=== PATIENT | female | born 1985 ===

== ENCOUNTER 2017-09-21 23:17 | Emergency (ER) | payer MEDICAID ==
[2017-09-22 00:13] VITALS: BP 167/127; PULSE 98; RESP 18; TEMP 98; O2SAT 98
== END 2017-09-22 00:20 | disposition left against medical advice (07) ==
LOC: H.ER 23:17
DX: Z02.89 Encounter for other administrative examinations (principal)

== ENCOUNTER 2018-02-12 02:25 | Emergency (ER) | payer MEDICAID ==
[2018-02-12 03:17] VITALS: PULSE 61; RESP 18; TEMP 98; O2SAT 100
[2018-02-12 04:44] LABS: BASO % 0.9 % (0.0-2.0); EOS # 0.3 K/uL (0.0-0.7); EOS % 6.7 % (0.0-4.0); HEMOGLOBIN 13.8 g/dL (12.0-16.0); LYMPH % 52.6 % (20.0-40.0); MEAN CELL VOLUME 87.6 fl (81.0-99.0); MEAN CORPUSCULAR HEMOGLOBIN 29.7 pg (27.0-31.0); MEAN CORPUSCULAR HGB CONC 33.9 g/dL (33.0-37.0); MEAN PLATELET VOLUME 10.2 fl (7.2-11.7); MONO # 0.6 K/uL (0.0-0.8); MONO % 15.2 % (0.0-10.0); NEUT % 24.6 % (50.0-75.0); NRBC % 0.2 % (0.0-0.0); RBC 4.66 Mil/uL (3.80-5.20); WHITE BLOOD COUNT 3.9 K/uL (4.8-10.8)
[2018-02-12 04:52] LABS: CALCIUM 8.8 mg/dL (8.4-10.2); GFR AFRICAN-AMERICAN > 60; GFR NON-AFRICAN AMERICAN > 60
[2018-02-12 04:58] LABS: ALB/GLOB RATIO 1.1 (1.0-2.1); ALBUMIN 4.3 g/dL (3.5-5.0); ALT/SGPT 24 U/L (9-52); AST/SGOT 41 U/L (14-36); BLOOD UREA NITROGEN 13 mg/dl (7-17)
--- NOTE | 2018-02-12 05:27 | ED PDOC ---
HPI: Hypertension/Hypotension Time Seen by Provider: 02/12/18 03:20 Chief Complaint (Nursing): High Blood Pressure Chief Complaint (Provider): High Blood Pressure History Per: Patient History/Exam Limitations: no limitations Onset/Duration Of Symptoms: Days (x 2) Current Symptoms Are (Timing): Still Present Associated Symptoms: Chest Pain, Headache Additional Complaint(s): 32 year old female with a history of HTN and rhabdomyolysis presents to the ED with complaints of vague neck pain and chest discomfort since yesterday. Patient was formerly on 5mg on Norvasc a day. These symptoms are similar to those she had experienced. Denies nausea and vomiting. PMD Dr Lashell Thompson Past Medical History Vital Signs: Last Vital Signs Temp 98 F 02/12/18 03:14 Pulse 61 02/12/18 03:14 Resp 18 02/12/18 03:14 BP 181/129 H 02/12/18 03:14 Pulse Ox 100 02/12/18 03:14 - Medical History PMH: HTN Denies: HIV, Chronic Kidney Disease - Surgical History Surgical History: (x 1) - Family History Family History: States: Stroke, Hypertension (Father with Stroke) - Home Medications Home Medications: Ambulatory Orders Medication Instructions Recorded Acetaminophen [Tylenol 325mg tab] 650 mg PO Q4 PRN #0 tab 03/17/15 oxyCODONE/Acetaminophen [Percocet 1 tab PO Q6 PRN #20 tab 03/20/15 5/325 mg Tab] traMADol [Ultram] 50 mg PO Q6 PRN #20 tab 03/20/15 Albuterol HFA [Ventolin HFA 90 1 puff IH Q4 PRN #1 inh 05/06/16 mcg/actuation (8 g)] Fluticasone Nasal [Flonase] 1 actuation NS BID #1 bottle 05/06/16 Benzonatate [Tessalon Perle] 100 mg PO TID #21 capsule 05/07/16 amLODIPine [Norvasc] 5 mg PO DAILY #15 tab 05/07/16 amLODIPine [Norvasc] 5 mg PO QAM #10 tab 02/12/18 - Allergies Allergies/Adverse Reactions: Allergies Allergy/AdvReac Type Severity Reaction Status Date / Time No Known Allergies Allergy Verified 08/24/15 21:37 - Laboratory Results Result Diagrams: 02/12/18 04:39 07/14/18 04:39 - ECG O2 Sat by Pulse Oximetry: 100 Medical Decision Making Medical Decision Making: Time: 03:59 Impression: high blood pressure Initial Plan: --EKG --CMP --CPK --troponin I --U preg --Norvasc 10 mg PO Time: 06:15 --Patient reports improvement of high blood pressure symptoms. Return precautions were provided. Follow up with PMD in 1-2 days without fail. It is crucial that the patient take medication as directed regularly. ---- Scribe Attestation: Documented by Mariam Campos, acting as a scribe for Pierce Hamilton MD Provider Scribe Attestation: All medical record entries made by the Scribe were at my direction and personally dictated by me. I have reviewed the chart and agree that the record accurately reflects my personal performance of the history, physical exam, medical decision making, and the department course for this patient. I have also personally directed, reviewed, and agree with the discharge instructions and disposition Disposition - Clinical Impression Clinical Impression: Uncontrolled hypertension - Patient ED Disposition Is Patient to be Admitted: No - Disposition Disposition: Routine/Home Disposition Time: 06:20 Condition: STABLE Prescriptions: amLODIPine [Norvasc] 5 mg PO QAM #10 tab Instructions: High Blood Pressure in Adults, Medicines for High Blood Pressure Forms: [employer] ([place])
[2018-02-12 06:37] VITALS: BP 143/103
--- NOTE | 2018-02-14 13:51 | CARD ---
APPROVED REPORT Date of service: 02/12/2018 EKG Measurement Heart [id number] <Conclusion> Sinus bradycardia Otherwise normal ECG
== END 2018-02-12 06:51 | disposition home or self-care (01) ==
LOC: H.ER 02:25
DX: I10 Essential (primary) hypertension (principal)

== ENCOUNTER 2018-07-16 | Emergency (ER) | payer MEDICAID ==
[2018-07-16 00:16] VITALS: RESP 16
[2018-07-16] MEDS ORDERED: Simethicone 80 mg Chewtab PO STA (00:48)
--- NOTE | 2018-07-16 01:32 | ED PDOC ---
HPI: Abdomen Time Seen by Provider: 07/16/18 00:36 Chief Complaint (Nursing): Abdominal Pain Chief Complaint (Provider): Abdominal Pain History Per: Patient History/Exam Limitations: no limitations Onset/Duration Of Symptoms: Days (x1 month and a half) Current Symptoms Are (Timing): Still Present Quality Of Discomfort: Other (Bloating) Associated Symptoms: Back Pain. denies: Fever, Nausea, Vomiting, Diarrhea, Constipation, Urinary Symptoms Additional Complaint(s): 33 y/o female with a PMHx of HTN presents to the ED for evaluation of abdominal pain associated with back pain, onset one month ago. Patient states symptoms are on and off. Patient describes abdominal pain and "bloated". However, patient has a difficult time explaining the pain. Additionally, patient reports of seeing her "belly button moving" thus prompting her to Google her symptoms. Patient is concerned for parasites. Patient states she currently has no pain. Of note, patient is not complaint with HTN medications. Patient states her blood pressure is "always high". PMD: none Past Medical History Reviewed: Historical Data, Nursing Documentation, Vital Signs Vital Signs: Last Vital Signs Temp 98.4 F 07/16/18 00:12 Pulse 72 07/16/18 00:12 Resp 16 07/16/18 00:12 BP 178/120 H 07/16/18 00:12 Pulse Ox 100 07/16/18 00:12 - Medical History PMH: HTN Denies: HIV, Chronic Kidney Disease - Surgical History Surgical History: (x 1) - Family History Family History: States: Stroke, Hypertension (Father with Stroke) - Home Medications Home Medications: Ambulatory Orders Medication Instructions Recorded Acetaminophen [Tylenol 325mg tab] 650 mg PO Q4 PRN #0 tab 03/17/15 oxyCODONE/Acetaminophen [Percocet 1 tab PO Q6 PRN #20 tab 03/20/15 5/325 mg Tab] traMADol [Ultram] 50 mg PO Q6 PRN #20 tab 03/20/15 Albuterol HFA [Ventolin HFA 90 1 puff IH Q4 PRN #1 inh 05/06/16 mcg/actuation (8 g)] Fluticasone Nasal [Flonase] 1 actuation NS BID #1 bottle 05/06/16 Benzonatate [Tessalon Perle] 100 mg PO TID #21 capsule 05/07/16 amLODIPine [Norvasc] 5 mg PO DAILY #15 tab 05/07/16 amLODIPine [Norvasc] 5 mg PO QAM #10 tab 02/12/18 Simethicone [Gas Relief 80] 80 mg PO DAILY #12 ctb 07/16/18 - Allergies Allergies/Adverse Reactions: Allergies Allergy/AdvReac Type Severity Reaction Status Date / Time No Known Allergies Allergy Verified 07/16/18 00:12 Review of Systems ROS Statement: Except As Marked, All Systems Reviewed And Found Negative Constitutional: Negative for: Fever Gastrointestinal: Positive for: Abdominal Pain. Negative for: Nausea, Vomiting, Diarrhea, Constipation Genitourinary Female: Negative for: Dysuria, Frequency, Hematuria Musculoskeletal: Positive for: Back Pain Physical Exam - Reviewed Nursing Documentation Reviewed: Yes Vital Signs Reviewed: Yes - Physical Exam Appears: Positive for: No Acute Distress Head Exam: Positive for: ATRAUMATIC, NORMOCEPHALIC Skin: Positive for: Normal Color, Warm, Dry Eye Exam: Positive for: Normal appearance, EOMI, PERRL Neck: Positive for: Normal, Painless ROM, Supple Cardiovascular/Chest: Positive for: Regular Rate, Rhythm. Negative for: Murmur Respiratory: Positive for: Normal Breath Sounds. Negative for: Respiratory Distress Gastrointestinal/Abdominal: Positive for: Normal Exam, Soft. Negative for: Tenderness Back: Positive for: Normal Inspection. Negative for: L CVA Tenderness, R CVA Tenderness, Vertebral Tenderness Extremity: Positive for: Normal ROM. Negative for: Pedal Edema, Deformity Neurologic/Psych: Positive for: Alert, Oriented. Negative for: Motor/Sensory Deficits - ECG O2 Sat by Pulse Oximetry: 100 (RA) Pulse Ox Interpretation: Normal Medical Decision Making Medical Decision Making: Time: 47 A/P: 33 y/o female with a PMHx of HTN with vague abdominal pain. -- Paitent reports of no pain currently. -- Symptoms most likely gas or possible constipation. 140 -- XR shows significant stool burden. -- Will recommend diet modificaiton and simethicone. -- Advised patient to take her HTN medications as prescribed. Scribe Attestation: Documented by Jing Zacarias, acting as a scribe for Rocco Pastrana MD. Provider Scribe Attestation: All medical record entries made by the Scribe were at my direction and personally dictated by me. I have reviewed the chart and agree that the record accurately reflects my personal performance of the history, physical exam, medical decision making, and the department course for this patient. I have also personally directed, reviewed, and agree with the discharge instructions and disposition. Disposition - Clinical Impression Clinical Impression: Abdominal pain - Disposition Referrals: Richard Mcarthur MD [Staff Provider] - Disposition: Routine/Home Disposition Time: 01:40 Condition: STABLE Prescriptions: Simethicone [Gas Relief 80] 80 mg PO DAILY #12 ctb Instructions: High Blood Pressure (DC), Controlling Your Blood Pressure Through Lifestyle, Gas and Bloating Forms: [facility] (Armenian)
[2018-07-16 01:42] VITALS: BP 160/96; PULSE 84; TEMP 98.2
[2018-07-16 03:16] VITALS: O2SAT 100
--- NOTE | 2018-07-16 08:47 | RAD ---
Date of service: 07/16/2018 PROCEDURE: Radiographs of the chest and abdomen (obstructive series) HISTORY: abd pain COMPARISON: Chest radiographs 05/06/2016. TECHNIQUE: AP radiograph of the chest, with upright and supine radiographs of the abdomen. FINDINGS: CHEST: Lungs: Clear. Cardiovascular: Normal size heart. No pulmonary vascular congestion. No aortic atherosclerotic calcification present Pleura: No pleural fluid. No pneumothorax. Other findings: Resume nipple ring identified at the left breast different than prior device. Right nipple ring removed in the interval. ABDOMEN AND PELVIS: Bowel: Unremarkable bowel gas pattern. No evidence of mechanical obstruction. Free air: None. Bones: Unremarkable. Other findings: None. IMPRESSION: Unremarkable radiographs of chest and abdomen. No evidence of mechanical bowel obstruction.
== END 2018-07-16 01:44 | disposition home or self-care (01) ==
LOC: H.ER
DX: R10.9 Unspecified abdominal pain (principal); I10 Essential (primary) hypertension